=== PATIENT | female | born 1995 | race Caucasian/White ===

== ENCOUNTER 2024-05-22 10:12 | Emergency (ER) | payer OTHER ==
[2024-05-22 10:42] VITALS: TEMP 98.2
--- NOTE | 2024-05-22 11:06 | ED ---
Wound/Laceration HPI - General Chief Complaint: Wound/Laceration Stated Complaint: R Finger Laceration Time Seen by Provider: 05/22/24 10:42 Source: patient, RN notes reviewed Mode of arrival: ambulatory Limitations: no limitations - History of Present Illness Initial Comments: This is a 28-year-old female who presents to the emergency department for a l aceration to the right index finger. States that she sliced this on a slicing machine at work. Patient works at [employer]. Denies any substantial pain associated with this. Tetanus vaccine is up-to-date. - Related Data Allergies Allergy/AdvReac Type Severity Reaction Status Date / Time No Known Allergies Allergy Verified 05/22/24 10:42 Review of Systems ROS Statement: Those systems with pertinent positive or pertinent negative responses have been documented in the HPI. ROS Other: All systems not noted in ROS Statement are negative. Past Medical History Past Medical History: No Reported History Past Surgical History: No Surgical Hx Reported Past Drug Use History: Heroin, Opiates General Exam Limitations: no limitations General appearance: alert, in no apparent distress Head exam: Present: atraumatic, normocephalic, normal inspection Respiratory exam: Present: normal lung sounds bilaterally. Absent: respiratory distress, wheezes, rales, rhonchi, stridor Cardiovascular Exam: Present: regular rate, normal rhythm, normal heart sounds. Absent: systolic murmur, diastolic murmur, rubs, gallop, clicks Neurological exam: Present: alert, oriented X3, CN II-XII intact Psychiatric exam: Present: normal affect, normal mood Skin exam: Present: other (Superficial skin flap laceration to the right index finger. No active bleeding.) Course Vital Signs 05/22/24 05/22/24 05/22/24 10:40 11:08 11:36 Temperature 98.2 F 98.2 F Pulse Rate 74 71 Respiratory 16 18 Rate Blood Pressure 87/63 103/70 O2 Sat by Pulse 98 98 Oximetry Medical Decision Making - Medical Decision Making This is a 28-year-old female who presents to the emergency department for a laceration to her right index finger. Was pt. sent in by a medical professional or institution? @ -No Did you speak to anyone other than the patient for history? @ -No Did you review nursing and triage notes? @ -Yes, and I agree, it is accurate with regards to the patient's symptoms. Were old charts reviewed? @ -No Differential Diagnosis? @ -Differential Laceration: Laceration, abrasion, burn, insect bite, this is not meant to be an all-inclusive list. EKG interpreted by me (3pts min.)? @ -Not obtained X-rays interpreted by me (1pt min.)? @ -Not obtained CT interpreted by me (1pt min.)? @ -Not obtained U/S interpreted by me (1pt. min.)? @ -Not obtained What testing was considered but not performed? (CT, X-rays, U/S, labs)? Why? @ -None What meds were considered but not given? Why? @ -None Did you discuss the management of the patient with other professionals? @ -No Did you reconcile home meds? @ -No Was smoking cessation discussed for >3mins.? @ -No Was critical care preformed (if so, how long)? @ -No Were there social determinants of health that impacted care today? How? (Homelessness, low income, unemployed, alcoholism, drug addiction, transportation, low edu. Level, literacy, decrease access to med. care, assisted, rehab)? @ -No Was there de-escalation of care discussed even if they declined? (Discuss DNR or withdrawal of care, Hospice)? @ -No What co-morbidities impacted this encounter? (DM, HTN, Smoking, COPD, CAD, Cancer, CVA, Hep., AIDS, mental health diagnosis, sleep apnea, morbid obesity)? @ -None Was patient admitted / discharged? @ -Discharged. Patient's wound was already intact and healing on its own. Steri-Strips were used to reinforce closure and the wound was bandaged. Tetanus vaccine is already up-to-date. Advised ibuprofen and Tylenol as needed for pain relief. Undiagnosed new problem with uncertain prognosis? @ -None Drug Therapy requiring intensive monitoring for toxicity (Heparin, Nitro, Insulin, Cardizem)? @ -None Were any procedures done? @ -None Diagnosis/symptom? @ -Laceration Acute, or Chronic, or Acute on Chronic? @ -Acute Uncomplicated (without systemic symptoms) or Complicated (systemic symptoms)? @ -Uncomplicated Side effects of treatment? @ -None Exacerbation, Progression, or Severe Exacerbation] @ -Not applicable Poses a threat to life or bodily function? @ -No Return precautions reviewed in depth, the patient is instructed to return to the emergency department with any new, worsening, or concerning symptoms. Patient verbalized understanding. This case was discussed in detail with the attending ED physician, Dr. Gómez. Presentation, findings, and treatment plan discussed in detail as well. Disposition Clinical Impression: Laceration Disposition: HOME SELF-CARE Instructions (If sedation given, give patient instructions): Laceration (ED) Additional Instructions: Return to the emergency department with any new, worsening, or concerning symptoms. Follow up with your primary care provider in 1-2 days. Is patient prescribed a controlled substance at d/c from ED?: No Referrals: Robert Yousif MD [Primary Care Provider] - 1-2 days Time of Disposition: 11:06
[2024-05-22 11:09] VITALS: BP 103/70
[2024-05-22 11:38] VITALS: PULSE 71; RESP 18
== END 2024-05-22 11:38 | disposition home or self-care (01) ==
LOC: EC 10:12
DX: S61.210A Laceration without foreign body of right index finger without damage to nail, initial encounter (principal); W31.1XXA Contact with metalworking machines, initial encounter
CPT/HCPCS: 99282